=== PATIENT | female | born 1940 | race Caucasian/White ===

== ENCOUNTER 2020-12-30 13:00 | Emergency (ER) | payer OTHER ==
[~2020-12-30] VITALS: Ht 154.9 cm; Wt 71.2 kg
[2020-12-30 13:33] LABS: Urine WBC None Seen /hpf (0 - 5)
[2020-12-30 13:36] LABS: Basophils # (auto) 0.1 10 ^3/uL (0-0.2); Basophils % (auto) 0.7 % (0.0-2.0); Eosinophils # (auto) 0.2 10 ^3/uL (0-0.8); Eosinophils % (auto) 2.2 % (0.0-7.0); Hematocrit 44.9 % (36.0-46.0); Hemoglobin 15.3 g/dL (12.2-16.2); Lymphocytes # (auto) 1.6 10 ^3/uL (0.4-5.4); Lymphocytes % (auto) 21.4 % (10.0-50.0); Mean Corpuscular Hemoglobin 31.5 pg (28.0-32.0); Mean Corpuscular Volume 92.5 fL (80.0-100.0); Monocytes # (auto) 0.6 10 ^3/uL (0-1.3); Monocytes % (auto) 8.3 % (0.0-12.0); Neutrophils # (auto) 5.1 10 ^3/uL (1.6-8.6); Neutrophils % (auto) 67.4 % (37.0-80.0); Nucleated Red Blood Cells % 0.1 %; Platelet Count (auto) 230 10^3/uL (140-450); Red Blood Cells 4.85 10^6/uL (4.0-5.20); Red Cell Distribution Width 13.8 % (11.8-14.3); White Blood Cell 7.6 10^3/uL (4.4-10.8)
[2020-12-30 13:41] LABS: Urine Bacteria NONE SEEN /hpf (None Seen); Urine Blood Negative /uL (Negative); Urine Specific Gravity 1.002 (1.001-1.035)
[2020-12-30 13:55] LABS: Albumin 3.7 g/dL (3.4-5.0); Anion Gap 9 (5-15); BUN/Creatinine Ratio 13.8; Blood Urea Nitrogen 12 mg/dL (7-18); Calcium 9.4 mg/dL (8.5-10.1); Carbon Dioxide 24 mmol/L (21-32); Chloride 108 mmol/L (98-107); GFR African American 80 mL/min; GFR Non-African American 66 mL/min; Glucose 115 mg/dL (74-106); Potassium 4.3 mmol/L (3.5-5.1); Sodium 141 mmol/L (136-145)
[2020-12-30 14:00] VITALS: BP 188/82
[2020-12-30 14:06] LABS: Alanine Aminotransferase 38 U/L (13-56); Alkaline Phosphatase 113 U/L (45-117); Aspartate Aminotransferase 44 U/L (15-37); Bilirubin, Total 0.4 mg/dL (0.2-1.0); Total Protein 7.7 g/dL (6.4-8.2)
[2020-12-30] MEDS ORDERED: cloNIDine HCL 0.1 MG TAB ONE (14:37)
[2020-12-30] MEDS ORDERED: cloNIDine HCL 0.1 MG TAB PO ONE (14:45)
== END 2020-12-30 16:35 | disposition home or self-care (01) ==
LOC: ER 13:00
DX: R51.9 Headache, unspecified (principal); R07.9 Chest pain, unspecified; I16.0 Hypertensive urgency; I10 Essential (primary) hypertension
CPT/HCPCS: 36415; 70450; 71045; 80053; 81001; 84484; 85025; 93005

== ENCOUNTER 2021-01-10 12:02 | Emergency (ER) | payer OTHER ==
[~2021-01-10] VITALS: Ht 152.4 cm; Wt 71.2 kg
[2021-01-10] MEDS ORDERED: cloNIDine HCL 0.1 MG TAB ONE (12:09)
[2021-01-10] MEDS ORDERED: cloNIDine HCL 0.1 MG TAB PO ONE (12:15)
[2021-01-10 13:39] LABS: Basophils # (auto) 0 10 ^3/uL (0-0.2); Basophils % (auto) 0.6 % (0.0-2.0); Eosinophils # (auto) 0.1 10 ^3/uL (0-0.8); Eosinophils % (auto) 1.4 % (0.0-7.0); Hematocrit 45.1 % (36.0-46.0); Hemoglobin 15.4 g/dL (12.2-16.2); Lymphocytes # (auto) 1.1 10 ^3/uL (0.4-5.4); Lymphocytes % (auto) 17.9 % (10.0-50.0); Mean Corpuscular Hemoglobin 31.5 pg (28.0-32.0); Mean Corpuscular Hgb Conc. 34.1 g/dL (32.0-36.0); Mean Corpuscular Volume 92.3 fL (80.0-100.0); Monocytes # (auto) 0.5 10 ^3/uL (0-1.3); Monocytes % (auto) 8.2 % (0.0-12.0); Neutrophils # (auto) 4.3 10 ^3/uL (1.6-8.6); Neutrophils % (auto) 71.9 % (37.0-80.0); Nucleated Red Blood Cells % 0.2 %; Platelet Count (auto) 229 10^3/uL (140-450); Red Blood Cells 4.89 10^6/uL (4.0-5.20); Red Cell Distribution Width 13.4 % (11.8-14.3); White Blood Cell 5.9 10^3/uL (4.4-10.8)
[2021-01-10 13:46] LABS: Chloride 106 mmol/L (98-107); Potassium 3.9 mmol/L (3.5-5.1); Sodium 137 mmol/L (136-145)
[2021-01-10 13:51] LABS: Alanine Aminotransferase 22 U/L (13-56); Albumin 3.8 g/dL (3.4-5.0); Anion Gap 8 (5-15); Aspartate Aminotransferase 23 U/L (15-37); BUN/Creatinine Ratio 16.9; Blood Urea Nitrogen 14 mg/dL (7-18); Calcium 9.2 mg/dL (8.5-10.1); Carbon Dioxide 23 mmol/L (21-32); GFR African American 85 mL/min; GFR Non-African American 70 mL/min; Glucose 115 mg/dL (74-106)
[2021-01-10 13:56] LABS: Alkaline Phosphatase 93 U/L (45-117); Bilirubin, Total 0.6 mg/dL (0.2-1.0); Total Protein 8.2 g/dL (6.4-8.2)
[2021-01-10] MEDS ORDERED: SODIUM CHLORIDE 0.9% 1,000 ML IV ONE (15:15)
[2021-01-10] MEDS ORDERED: LORazepam 0.5 MG TAB PO ONE (16:15)
[2021-01-10 17:23] VITALS: BP 138/68
== END 2021-01-10 17:52 | disposition home or self-care (01) ==
LOC: ER 12:02
DX: I16.0 Hypertensive urgency (principal); F41.0 Panic disorder [episodic paroxysmal anxiety]
CPT/HCPCS: 36415; 71046; 80053; 84484; 85025; 93005; 96360; 99285; J7030

== ENCOUNTER → 2021-03-17 | Outpatient (CLI) | payer OTHER ==
[2021-03-17 10:03] LABS: Basophils # (auto) 0.1 10 ^3/uL (0-0.2); Basophils % (auto) 1.5 % (0.0-2.0); Eosinophils # (auto) 0.1 10 ^3/uL (0-0.8); Eosinophils % (auto) 1.8 % (0.0-7.0); Hematocrit 41.9 % (36.0-46.0); Hemoglobin 14.9 g/dL (12.2-16.2); Lymphocytes # (auto) 1.6 10 ^3/uL (0.4-5.4); Lymphocytes % (auto) 25.3 % (10.0-50.0); Mean Corpuscular Hemoglobin 31.6 pg (28.0-32.0); Mean Corpuscular Hgb Conc. 35.6 g/dL (32.0-36.0); Mean Corpuscular Volume 88.8 fL (80.0-100.0); Monocytes # (auto) 0.6 10 ^3/uL (0-1.3); Monocytes % (auto) 9.7 % (0.0-12.0); Neutrophils # (auto) 3.8 10 ^3/uL (1.6-8.6); Neutrophils % (auto) 61.7 % (37.0-80.0); Platelet Count (auto) 245 10^3/uL (140-450); Red Blood Cells 4.72 10^6/uL (4.0-5.20); Red Cell Distribution Width 12.8 % (11.8-14.3); White Blood Cell 6.2 10^3/uL (4.4-10.8)
[2021-03-17 10:35] LABS: Albumin 3.7 g/dL (3.4-5.0); Calcium 8.8 mg/dL (8.5-10.1); Potassium 3.8 mmol/L (3.5-5.1)
[2021-03-17 10:41] LABS: BUN/Creatinine Ratio 15.8; Bilirubin, Total 0.8 mg/dL (0.2-1.0); Total Protein 7.9 g/dL (6.4-8.2)
[2021-03-17 13:03] LABS: Urine Blood Negative /uL (Negative); Urine Specific Gravity 1.006 (1.001-1.035)
== END | disposition home or self-care (01) ==
LOC: LAB 09:23
PROVIDERS: ATTEND Internal Medicine
DX: I10 Essential (primary) hypertension (principal); E03.9 Hypothyroidism, unspecified; E55.9 Vitamin D deficiency, unspecified
CPT/HCPCS: 36415; 80053; 80061; 81003; 82306; 85025; 85049

== ENCOUNTER → 2021-04-19 | Outpatient (CLI) | payer OTHER ==
[2021-04-19 14:58] LABS: Albumin 3.4 g/dL (3.4-5.0)
[2021-04-19 15:01] LABS: Bilirubin, Direct 0.2 mg/dL (0-0.2); Bilirubin, Total 0.6 mg/dL (0.2-1.0); Total Protein 7.8 g/dL (6.4-8.2)
== END | disposition home or self-care (01) ==
LOC: LAB 14:12
PROVIDERS: ATTEND Internal Medicine
DX: E78.5 Hyperlipidemia, unspecified (principal)
CPT/HCPCS: 36415; 80076

== ENCOUNTER → 2022-08-14 | Outpatient (CLI) | payer OTHER ==
[2022-08-14 12:32] LABS: Albumin 3.2 g/dL (3.4-5.0); Bilirubin, Direct 0.2 mg/dL (0-0.2); Bilirubin, Total 0.6 mg/dL (0.2-1.0)
== END | disposition home or self-care (01) ==
LOC: LAB 11:06
PROVIDERS: ATTEND Internal Medicine
DX: E78.5 Hyperlipidemia, unspecified (principal)
CPT/HCPCS: 36415; 80061; 80076; 83036